=== PATIENT | female | born 2000 | race Caucasian/White ===

== ENCOUNTER 2019-02-09 16:56 | Emergency (ER) | payer OTHER ==
[~2019-02-09] VITALS: Ht 162.6 cm; Wt 72.1 kg
[2019-02-09 16:58] VITALS: Ht 162.6 cm; Wt 72.1 kg
[2019-02-09] MEDS ORDERED: ACETAMINOPHEN 325 MG TAB PO ONE (18:00)
[2019-02-09] MEDS ORDERED: LORAZEPAM 1 MG TAB PO ONE (18:00)
[2019-02-09] MEDS ORDERED: IBUP-1542 PO (18:54)
[2019-02-09 19:10] VITALS: BP 135/77; PULSE 85; RESP 18
--- NOTE | 2019-02-09 21:51 | ERD ---
ER Documentation Chief Complaint Chief Complaint chest tightness @ right chest area, shortness of breath HPI 18-year-old female past medical history of anxiety presenting to the emergency department complaining of right-sided chest pain without radiation which onset suddenly while relaxing in bed just prior to arrival. She describes the pain as sharp and a "tightness". Symptoms are intermittent and worse with deep inspiration. Associated symptoms include shortness of breath which is worse on exertion. She also has noticed some left thigh pain but cannot identify a cause of this. She denies any anxiety feelings now. She took ibuprofen at home without relief. She states she takes Wellbutrin and Pristiq for anxiety and depression symptoms. She does endorse taking oral contraceptive pills. She denies any cough, fevers, recent travel, hemoptysis, past DVT or PE, or other symptoms at this time. ROS All systems reviewed and are negative except as per history of present illness. Medications Home Meds Active Scripts Ibuprofen* (Motrin*) 600 Mg Tab, 600 MG PO Q6, #30 TAB Prov:SCOT GALE PA-C 02/09/19 Allergies Allergies: Coded Allergies: No Known Allergy (Unverified , 02/09/19) PMhx/Soc Medical and Surgical Hx: pt denies Medical Hx, pt denies Surgical Hx FmHx Family History: No diabetes Physical Exam Vitals Vital Signs Date Temp Pulse Resp B/P (MAP) Pulse Ox O2 O2 Flow FiO2 Time Delivery Rate 02/09/19 98.1 85 18 135/77 100 Room Air 19:10 (96) 02/09/19 97.0 114 19 143/91 99 16:58 (108) Physical Exam Const: No acute distress Head: Atraumatic Eyes: Normal Conjunctiva ENT: Normal External Ears, Nose and Mouth. Neck: Full range of motion. No meningismus. Resp: Clear to auscultation bilaterally Cardio: Tachycardic, regular rhythm, no murmurs. Skin: No petechiae or rashes Back: No midline or flank tenderness Ext: No cyanosis, or edema Neur: Awake and alert Psych: Normal Mood and Affect Result Diagram: 02/09/19194502/09/191945 Results 24 hrs Laboratory Tests Test 02/09/19 17:48 02/09/19 19:46 POC Beta HCG, Qualitative NEGATIVE White Blood Count 8.1 10^3/ul Red Blood Count 4.19 10^6/ul Hemoglobin 12.3 g/dl Hematocrit 35.9 % Mean Corpuscular Volume 85.7 fl Mean Corpuscular Hemoglobin 29.4 pg Mean Corpuscular Hemoglobin Concent 34.3 g/dl Red Cell Distribution Width 12.0 % Platelet Count 264 10^3/UL Mean Platelet Volume 9.4 fl Immature Granulocytes % 0.200 % Neutrophils % 60.7 % Lymphocytes % 30.3 % Monocytes % 7.2 % Eosinophils % 0.9 % Basophils % 0.7 % Nucleated Red Blood Cells % 0.0 /100WBC Immature Granulocytes # 0.020 10^3/ul Neutrophils # 4.9 10^3/ul Lymphocytes # 2.4 10^3/ul Monocytes # 0.6 10^3/ul Eosinophils # 0.1 10^3/ul Basophils # 0.1 10^3/ul Nucleated Red Blood Cells # 0.0 10^3/ul D-Dimer 277.59 ng/ml D-Dimer Comment Sodium Level 141 mmol/L Potassium Level 4.5 mmol/L Chloride Level 106 mmol/L Carbon Dioxide Level 30 mmol/L Anion Gap 5 Blood Urea Nitrogen 10 mg/dl Creatinine 0.95 mg/dl Est Glomerular Filtrat Rate mL/min > 60 mL/min Glucose Level 91 mg/dl Calcium Level 9.5 mg/dl Current Medications Medications Dose Sig/Regis Start Time Status Last (Trade) Ordered Route PRN Stop Time Admin Dose Reason Admin 650 mg ONCE ONCE 02/09/19 DC 02/09/19 Acetaminophen PO 18:00 17:56 (Tylenol 02/09/19 18:01 Tab) Lorazepam 1 mg ONCE ONCE 02/09/19 DC 02/09/19 (Ativan) PO 18:00 17:55 02/09/19 18:01 Procedures/MDM 18-year-old female presenting to the emergency department complaining of shortness of breath and chest pain and left thigh pain. The PERC criteria for pulmonary embolism was unable to be utilized for this patient and therefore a d- dimer was obtained. D-dimer was within normal range of 277.59. CBC and BMP Showed no significant acute abnormalities. Urine was negative. Chest x-ray and EKG were not concerning for acute coronary syndrome or other emergencies. Medical Decision Making: I considered pulmonary embolism, aortic dissection, pneumothorax among other diagnoses. Shared decision making occurred with michelle ent and the decision has been made to discharge the patient for outpatient evaluation and functional study within 72 hours. No evidence of life- threatening pathology at time of discharge. Pt/family in agreement with discharge plan/diagnosis. Pt/family advised to return immediately with any new or worsening symptoms. Follow-up with primary care physician within the next 1- 2 days. Patient's blood pressure was elevated (>120/80) but appears stable without evidence of hypertension emergency or urgency. The patient is to follow-up and pursue outpatient monitoring and therapy with their primary care physician within 1 week and return immediately if they have any new, worsening, or concerning symptoms. Disclaimer: Inadvertent spelling and grammatical errors are likely due to EHR/dictation software use and do not reflect on the overall quality of patient care. Also, please note that the electronic time recorded on this note does not necessarily reflect the actual time of the patient encounter. I did discuss this patient's case with attending ED physician, Dr. Domingo Tejada who is in agreement. EKG: Interpreted by ED physician. Rate/Rhythm: Normal Sinus Rhythm with a rate of 95 bpm. QRS, ST, T-waves: No changes consistent w/ acute ischemia Impression: No evidence of ischemia or arrhythmia Departure Diagnosis: Primary Impression: Chest pain Additional Impression: Anxiety reaction Condition: Fair Patient Instructions: Anxiety Reaction, Chest Wall Pain, Costochondritis Additional Instructions: Call your primary care doctor TOMORROW for an appointment during the next 1-2 days.See the doctor sooner or return here if your condition worsens before your appointment time. SCOT GALE PA-C February 09, 2019 21:51
== END 2019-02-09 20:35 | disposition home or self-care (01) ==
LOC: FTE 16:56
DX: F41.1 Generalized anxiety disorder (principal)
CPT/HCPCS: 71045; 80048; 81025; 85025; 85378; 93005